=== PATIENT | male | born 1990 | race Caucasian/White ===

== ENCOUNTER 2016-09-18 11:30 | Emergency (ER) | payer MEDICAID ==
[~2016-09-18] VITALS: Ht 177.8 cm; Wt 55.0 kg
[~2016-09-18 11:30] MED LIST: PHEN100C PO; PHEN50TA4 PO
[2016-09-18] MEDS ORDERED: SODIUM CHLORIDE FLUSH 10ML SYR IVF ONE (12:00)
[2016-09-18] MEDS ORDERED: CEFTRIAXONE 1,000 MG in SODIUM CHLORIDE 0.9% 50 ML IVPB ONE (12:00)
[2016-09-18 12:12] LABS: BLOOD UREA NITROGEN 9 mg/dL (7-18)
[2016-09-18] MEDS ORDERED: CEFTRIAXONE PMX 1GM/50ML 50 ML ONE (12:28)
[2016-09-18 13:43] VITALS: BP 144/88
[2016-09-18] MEDS ORDERED: BACITRACIN ZINC OINT 500U/GM, 0.9 GM ONE (13:57)
== END 2016-09-18 14:12 | disposition home or self-care (01) ==
LOC: ED 13:47
DX: L03.116 Cellulitis of left lower limb (principal)
CPT/HCPCS: 36415; 73630; 80048; 82040; 85025; 96365; 99285; J0696

== ENCOUNTER 2016-09-20 09:55 | Inpatient (IN) | payer MEDICAID ==
[~2016-09-20] VITALS: Ht 172.7 cm; Wt 52.8 kg
[2016-09-20] MEDS ORDERED: SODIUM CHLORIDE 0.9% 1,000 ML IV ONE (11:18)
[2016-09-20] MEDS ORDERED: VANCOMYCIN PER PHARMACY IV ONE (11:30)
[2016-09-20] MEDS ORDERED: SODIUM CHLORIDE 0.9% 1,000ML IVBOLUS ONE (11:30)
[2016-09-20] MEDS ORDERED: DIPH,PERTUSS(ACELL),TET VAC/PF 0.5 ML IM-VACC ONE (11:30)
[2016-09-20] MEDS ORDERED: SODIUM CHLORIDE FLUSH 10ML SYR IVF ONE (11:30)
[2016-09-20] MEDS ORDERED: VANCOMYCIN 1,600 MG in SODIUM CHLORIDE 0.9% 250 ML IV ONE (13:00)
[2016-09-20 13:23] LABS: BLOOD UREA NITROGEN 9 mg/dL (7-18)
[2016-09-20 13:27] LABS: ASPARTATE AMINO TRANSFERASE 26 U/L (15-37)
[2016-09-20] MEDS ORDERED: SODIUM CHLORIDE FLUSH 10ML SYR IVF PRN (14:00)
[2016-09-20] MEDS ORDERED: PHENYTOIN SODIUM 600 MG in SODIUM CHLORIDE 0.9% 100 ML IVPB ONE (14:00)
[2016-09-20] MEDS ORDERED: FILTER 0.22 MICRON IV ONE ×2 (14:00→18:30)
[2016-09-20] MEDS ORDERED: HYDROcodone/APAP 5/325 TABLET PO PRN (14:30)
[2016-09-20] MEDS ORDERED: DOCUSATE 100 MG CAPSULE PO PRN (14:30)
[2016-09-20] MEDS ORDERED: ACETAMINOPHEN 325 MG TABLET PO PRN (14:30)
[2016-09-20] MEDS ORDERED: POLYETHYLENE GLYCOL 17 GM PACKET PO PRN (14:30)
[2016-09-20] MEDS ORDERED: ONDANSETRON 2MG/ML, 2ML IVPush PRN (14:30)
[2016-09-20] MEDS ORDERED: BISACODYL 10 MG SUPP PR PRN (14:30)
[2016-09-20] MEDS ORDERED: LORazepam 2 MG/ML, 1ML IVPush PRN (14:30)
[2016-09-20] MEDS ORDERED: PHENYTOIN SODIUM 600 MG in SODIUM CHLORIDE 0.9% 100 ML IV ONE (18:30)
[2016-09-20] MEDS: SODIUM CHLORIDE 0.9% 1,000 ML IV SCH (19:27)
[2016-09-20] MEDS: NICOTINE 14MG/24 HR PATCH.TD24 TD SCH (19:38)
[2016-09-20] MEDS: ENOXAPARIN 40 MG/0.4 ML SQ SCH (19:38)
[2016-09-20 19:46] VITALS: BP 130/79
[2016-09-20] MEDS: CEFTAROLINE 600 MG in SODIUM CHLORIDE 0.9% 100 ML IV SCH (20:30)
[2016-09-20] MEDS ORDERED: PNEUMOCOCCAL 23 VACCINE IM-VACC ONE (22:00)
[2016-09-20] MEDS: PHENYTOIN 100 MG CAPSULE PO SCH (22:01)
[2016-09-20 22:07] LABS: DAU SCREEN DISCLAIMER
[2016-09-21 02:30] VITALS: BP 128/74
[2016-09-21] MEDS: SODIUM CHLORIDE 0.9% 1,000 ML IV SCH ×2 (03:00→08:52)
[2016-09-21 05:01] LABS: BLOOD UREA NITROGEN 6 mg/dL (7-18)
[2016-09-21 08:10] VITALS: BP 126/68
[2016-09-21] MEDS: CEFTAROLINE 600 MG in SODIUM CHLORIDE 0.9% 100 ML IV SCH ×2 (08:51→20:34)
[2016-09-21] MEDS: THIAMINE 100MG TABLET PO SCH (08:52)
[2016-09-21] MEDS: MULTIVITAMIN 1 TABLET PO SCH (08:52)
[2016-09-21] MEDS: CYANOCOBALAMIN 1,000 MCG TABLET PO SCH (08:52)
[2016-09-21] MEDS: FOLIC ACID 1 MG TABLET PO SCH (08:52)
[2016-09-21 12:35] VITALS: BP 142/90
[2016-09-21] MEDS: NICOTINE 14MG/24 HR PATCH.TD24 TD SCH (14:47)
[2016-09-21] MEDS: ENOXAPARIN 40 MG/0.4 ML SQ SCH (17:50)
[2016-09-21 19:02] VITALS: BP 151/73
[2016-09-21] MEDS: PHENYTOIN 100 MG CAPSULE PO SCH (21:09)
[2016-09-22 01:07] VITALS: BP 111/68
[2016-09-22 06:35] VITALS: BP 131/67
[2016-09-22] MEDS: FOLIC ACID 1 MG TABLET PO SCH (08:47)
[2016-09-22] MEDS: CYANOCOBALAMIN 1,000 MCG TABLET PO SCH (08:47)
[2016-09-22] MEDS: MULTIVITAMIN 1 TABLET PO SCH (08:47)
[2016-09-22] MEDS: CEFTAROLINE 600 MG in SODIUM CHLORIDE 0.9% 100 ML IV SCH ×2 (08:47→20:21)
[2016-09-22] MEDS: THIAMINE 100MG TABLET PO SCH (08:47)
[2016-09-22 10:30] LABS: TOTAL IRON BINDING CAPACITY 219 mcg/dL (250-450)
[2016-09-22 13:25] VITALS: BP 137/71
[2016-09-22] MEDS: NICOTINE 14MG/24 HR PATCH.TD24 TD SCH (18:35)
[2016-09-22] MEDS: ENOXAPARIN 40 MG/0.4 ML SQ SCH (18:35)
[2016-09-22] MEDS: PHENYTOIN 100 MG CAPSULE PO SCH (20:21)
[2016-09-22 21:56] VITALS: BP 129/88
[2016-09-23 01:55] VITALS: BP 126/79
[2016-09-23 08:20] VITALS: BP 139/101
[2016-09-23] MEDS: FOLIC ACID 1 MG TABLET PO SCH (09:00)
[2016-09-23] MEDS: MULTIVITAMIN 1 TABLET PO SCH (09:00)
[2016-09-23] MEDS: THIAMINE 100MG TABLET PO SCH (09:00)
[2016-09-23] MEDS: CYANOCOBALAMIN 1,000 MCG TABLET PO SCH (09:00)
[2016-09-23] MEDS: CEFTAROLINE 600 MG in SODIUM CHLORIDE 0.9% 100 ML IV SCH ×2 (10:08→21:25)
[2016-09-23] MEDS: ASCORBIC ACID 500 MG TABLET PO SCH (12:05)
[2016-09-23] MEDS: FERROUS SULFATE 220 MG/5 ML ORAL SOL PO SCH (12:05)
[2016-09-23 13:30] VITALS: BP 120/75
[2016-09-23] MEDS: ENOXAPARIN 40 MG/0.4 ML SQ SCH (18:08)
[2016-09-23] MEDS: NICOTINE 14MG/24 HR PATCH.TD24 TD SCH (18:08)
[2016-09-23 19:06] VITALS: BP 124/72
[2016-09-23] MEDS ORDERED: PHENYTOIN 100 MG CAPSULE PO SCH (21:00)
[2016-09-24 00:34] VITALS: BP 119/70
[2016-09-24 07:05] VITALS: BP 149/76
[2016-09-24] MEDS: FERROUS SULFATE 220 MG/5 ML ORAL SOL PO SCH (09:00)
[2016-09-24] MEDS: FOLIC ACID 1 MG TABLET PO SCH (09:05)
[2016-09-24] MEDS: CEFTAROLINE 600 MG in SODIUM CHLORIDE 0.9% 100 ML IV SCH (09:05)
[2016-09-24] MEDS: ASCORBIC ACID 500 MG TABLET PO SCH (09:05)
[2016-09-24] MEDS: THIAMINE 100MG TABLET PO SCH (09:05)
[2016-09-24] MEDS: CYANOCOBALAMIN 1,000 MCG TABLET PO SCH (09:05)
[2016-09-24] MEDS: MULTIVITAMIN 1 TABLET PO SCH (09:05)
[2016-09-24] MEDS ORDERED: PHEN100C PO (10:22)
[2016-09-24] MEDS ORDERED: CEPH-368 PO (10:22)
[2016-09-24] MEDS ORDERED: IRON15TA3 PO (10:22)
[2016-09-24] MEDS ORDERED: ASCO500T6 PO (10:22)
[2016-09-24] MEDS ORDERED: MULT1TAB60 PO (10:22)
[2016-09-24 13:31] VITALS: BP 123/73
[2016-09-24] MEDS ORDERED: POLYETHYLENE GLYCOL 17 GM PACKET PO PRN (14:30)
[2016-09-24] MEDS ORDERED: ENOXAPARIN 40 MG/0.4 ML SQ SCH ×2 (14:30→18:00)
[2016-09-24] MEDS ORDERED: ONDANSETRON 2MG/ML, 2ML IVPush PRN (14:30)
== END 2016-09-24 15:17 | disposition home or self-care (01) | DRG 101 ==
LOC: ED 13:13 → EDIP 13:57 → 3NE 16:53
PROVIDERS: ADMIT Internal Medicine
DX: G40.409 Other generalized epilepsy and epileptic syndromes, not intractable, without status epilepticus (principal); L03.116 Cellulitis of left lower limb; F17.210 Nicotine dependence, cigarettes, uncomplicated; F10.20 Alcohol dependence, uncomplicated; F12.90 Cannabis use, unspecified, uncomplicated; D50.9 Iron deficiency anemia, unspecified; Z59.0 Homelessness; Z81.1 Family history of alcohol abuse and dependence; Z71.6 Tobacco abuse counseling
CPT/HCPCS: 36415; 70450; 80048; 80053; 80185; 80307; 81003; 83540; 83550; 83605; 83735; 84100; 84145; 84443; 85025; 85651; 86141; 87040; 90732; 93005; 93922; 99285; J0712; J1165; J1650; J3370; J2060; J7030; J7050

== ENCOUNTER 2017-01-07 21:12 | Emergency (ER) | payer MEDICAID ==
[~2017-01-07] VITALS: Ht 167.6 cm; Wt 60.0 kg
[~2017-01-07 21:12] MED LIST changes: +ASCO500T6 PO; +CEPH-368 PO; +IRON15TA3 PO; +MULT1TAB60 PO
[2017-01-07 21:58] LABS: HEMATOCRIT 39.8 % (39.2-51.8); HEMOGLOBIN 13.7 g/dL (13.7-18.0); WHITE BLOOD COUNT 5.8 x10^3/uL (3.4-10)
[2017-01-07 22:10] LABS: BLOOD UREA NITROGEN 7 mg/dL (7-18)
[2017-01-07] MEDS ORDERED: LEVE500T53 PO (23:19)
[2017-01-07] MEDS ORDERED: PHENYTOIN 100 MG CAPSULE PO ONE (23:30)
[2017-01-08] MEDS ORDERED: PHENYTOIN 100 MG CAPSULE ONE (01:15)
[2017-01-08] MEDS ORDERED: LEVETIRACETAM 500 MG TABLET PO ONE (01:30)
[2017-01-08 02:00] VITALS: BP 104/62
== END 2017-01-08 02:02 | disposition home or self-care (01) ==
LOC: ED 23:37
DX: S09.90XA Unspecified injury of head, initial encounter (principal); G40.919 Epilepsy, unspecified, intractable, without status epilepticus; F10.220 Alcohol dependence with intoxication, uncomplicated; W01.0XXA Fall on same level from slipping, tripping and stumbling without subsequent striking against object, initial encounter; Y93.89 Activity, other specified; Y92.410 Unspecified street and highway as the place of occurrence of the external cause; Y99.8 Other external cause status
CPT/HCPCS: 36415; 70450; 80048; 80185; 80307; 82040; 85025; 99285; G0479